=== PATIENT | female | born 2000 | race American Indian/Alaskan Native ===

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

== ENCOUNTER 2019-04-20 12:58 | Emergency (ER) | payer SELFPAY ==
[2019-04-20 13:29] VITALS: BP 123/72
--- NOTE | 2019-04-20 13:33 | Event Note ---
ED Screening Note Date of service: 04/20/19 Time: 13:28 ED Screening Note: This is a 19 y.o. F. that presents to the ER with pelvic pain and urinary frequency for several days. Admits vaginal discharge Denies vaginal bleeding, dysuria, or back pain LMP 03/17/2019, This initial assessment/diagnostic orders/clinical plan/treatment(s) is/are subject to change based on patients health status, clinical progression and re- assessment by fellow clinical providers in the ED. Further treatment and workup at subsequent clinical providers discretion. Patient/guardian urged not to elope from the ED as their condition may be serious if not clinically assessed and managed. Initial orders include: Labs
--- NOTE | 2019-04-20 13:53 | Emergency Department Report ---
Chief Complaint: Medical Clearance Stated Complaint: POSS /THROAT PAIN Time Seen by Provider: 04/20/19 13:27 - HPI History of Present Illness: Daisha is a 19 yo female who presents with two positive home tests. She states, "I just want to know how far along I am with this ." Denies abdominal pain or vomiting. I have provided outpatient resources for obstetrical care. She currently does not have life or limb threatening condition was needs further treatment or evaluation. She understands to return for vaginal bleeding or abdominal pain. - Exam Vital Signs: Vital Signs 04/20/19 13:27 Temperature 98.3 F Pulse Rate 109 H Respiratory 16 Rate Blood Pressure 123/72 [Left] O2 Sat by Pulse 97 Oximetry MSE screening note: Focused history and physical exam performed. Due to findings the following was ordered: ED Disposition for MSE Clinical Impression: Encounter for medical screening examination Disposition: MED SCREENING EXAM-LEFT Condition: Stable Referrals: [facility] [Outside] - 3-5 Days CHELSEA FOSTER MD [Staff Physician] - 3-5 Days
== END 2019-04-20 14:12 | disposition left against medical advice (07) ==
LOC: ED 12:58
DX: Z32.00 Encounter for pregnancy test, result unknown (principal)
CPT/HCPCS: 99281

== ENCOUNTER 2019-10-31 13:35 | Outpatient (CLI) | payer OTHER ==
[2019-10-31 15:41] VITALS: BP 111/72
--- NOTE | 2019-10-31 17:46 | Ultrasound Report ---
Limited OB ultrasound for biophysical profile FINDINGS: Single fetus is identified in vertex presentation. GIA is normal at 13 cm for score of 2. I n addition breathing motion, spontaneous movement, tone all also score 2/2 for a total sc ore of 8/8. heart rate was 155 bpm. Signer Name: Virgil Nagy MD Signed: 10/31/2019 5:41 PM Workstation Name: [id number]
--- NOTE | 2019-10-31 17:46 | Ultrasound Report ---
Limited OB ultrasound for biophysical profile FINDINGS: Single fetus is identified in vertex presentation. GIA is normal at 13 cm for score of 2. I n addition breathing motion, spontaneous movement, tone all also score 2/2 for a total sc ore of 8/8. heart rate was 155 bpm. Signer Name: Virgil Nagy MD Signed: 10/31/2019 5:41 PM Workstation Name: [id number]
== END 2019-10-31 17:59 | disposition home or self-care (01) ==
LOC: TRG 13:35 → APU 13:38 → TRG 17:59
PROVIDERS: ATTEND Obstetrics & Gynecology
DX: O26.893 Other specified pregnancy related conditions, third trimester (principal); O47.1 False labor at or after 37 completed weeks of gestation; Z3A.37 37 weeks gestation of pregnancy; Z67.41 Type O blood, Rh negative
CPT/HCPCS: 59025; 76815; 76819; 85461; 86850; 86900; 86901; 96372; J2790